=== PATIENT | male | born 1985 | race Caucasian/White ===

== ENCOUNTER → 2019-06-23 | Outpatient (CLI) | payer SELFPAY ==
--- NOTE | 2019-06-23 16:48 | CT ---
EXAMINATION TYPE: CT orbits wo con DATE OF EXAM: 06/23/2019 COMPARISON: Pain HISTORY: right orbit pain and bruising CT DLP: 384.4 mGycm Automated exposure control for dose reduction was used. FINDINGS: Orbital margins are intact. There is no evidence of a blowout fracture. There is normal aeration of t he paranasal sinuses. There is no evidence of retro-orbital mass. The nasal bone appears to have nond isplaced fracture on the right side. There is soft tissue swelling inferior to the right orbit. Zygom atic arches appear normal. IMPRESSION: NONDISPLACED NASAL BONE FRACTURE. SOFT TISSUE SWELLING.
== END | disposition home or self-care (01) ==
LOC: RADCTMAIN 16:26
PROVIDERS: ATTEND Ophthalmology
DX: S02.2XXA Fracture of nasal bones, initial encounter for closed fracture (principal)
CPT/HCPCS: 70480